=== PATIENT | female | born 1960 | race Caucasian/White ===

== ENCOUNTER 2017-07-31 16:00 | Emergency (ER) | payer OTHER ==
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
[2017-07-31] MEDS ORDERED: diazePAM 5 MG TABLET PO STA (17:48)
[2017-07-31] MEDS ORDERED: diazePAM 5 MG TABLET PO ONE (18:01)
--- NOTE | 2017-07-31 18:54 | CT Preliminary Report ---
Exam: CT Head W/O IMPRESSION: Suggestion of volume loss, with areas of encephalomalacia scattered in the left parietal, occipital and temporal lobes to suggest sequela of previous infarct versus contusion. No acute hemor rhage seen. Findings discussed with Dr. Rodriges at time of dictation on 07/31/2017 at 6:50 PM. [facility] SITE ID: [id number]
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
[2017-07-31] MEDS ORDERED: LORazepam 0.5 MG TABLET PO STA (19:06)
[2017-07-31 19:19] VITALS: BP 104/66
[2017-07-31] MEDS ORDERED: LORazepam 0.5 MG TABLET ONE (19:20)
== END 2017-07-31 19:20 | disposition home or self-care (01) ==
LOC: ED 16:00
DX: G44.319 Acute post-traumatic headache, not intractable (principal); Z04.1 Encounter for examination and observation following transport accident; I48.91 Unspecified atrial fibrillation; F17.200 Nicotine dependence, unspecified, uncomplicated; Z79.01 Long term (current) use of anticoagulants
CPT/HCPCS: 70450; 85610; 99282; 99283; A9270